=== PATIENT | male | born 1990 | race Caucasian/White ===

== ENCOUNTER 2018-05-12 10:00 | Emergency (ER) | payer OTHER, MEDICAID, SELFPAY ==
[2018-05-12 10:13] VITALS: BP 122/80; PULSE 55; RESP 18; TEMP 36.8; O2SAT 98; BMI 21.0
--- NOTE | 2018-05-12 11:41 | ED.ABDPAIN ---
HPI - Abdominal Pain General Chief Complaint: Abdominal Pain Stated Complaint: INABILITY TO EAT,EATING IS PAINFUL,VOMITING Time Seen by Provider: 05/12/18 10:11 History of Present Illness HPI narrative: HPI 28-year-old male with a history of abdominal pain, nausea, and postprandial discomfort presents for repeat evaluation. Symptoms have been present for several months. Patient reports to nursing that he was to follow up with GI but losses insurance and was thus unable to get a colonoscopy and endoscopy. Patient reports to myself that he did not pursue gastroenterology consultation arrange by his PCP as the follow-up time is longer than he would like. Patient reports that his primary care physician has not done kristopher jay in this is his reason for following up in the emergency department. M/S/F/SocHx notable for: please see HPI; remainder reviewed with patient and in chart. ROS: Negative constitutional, eye, cardiovascular, pulmonary, GI, , MSK, skin, neurologic, psychiatric, endocrine unless noted in the HPI. Exam Gen: Pleasant, non-toxic appearing, resting comfortably. HEENT: NC, AT, PEERL, EOMI. Resp: Clear to auscultation bilaterally, normal work of breathing, no accessory muscle usage. Card: Regular rate and rhythm with no murmurs, rubs, or gallops, extremities warm and well perfused. GI: Non-tender to palpation throughout all quadrants, no focal tenderness at McBurney's point, negative Rojo's sign, non-distended, no rebound or guarding. : No suprapubic tenderness to palpation. MSK: No visible deformities, strength and tone without visually appreciable deficit. Skin: Normal color with no visible lesions. Neuro: AO x 3, no facial asymmetry, vision and hearing WNL. Psych: Mood and affect appropriate. MDM Previous chart, nursing note, labs, imaging, and vitals reviewed. A: 28-year-old male with a history of abdominal pain, nausea, and postprandial discomfort x 3+ months presents for repeat evaluation. Patient continues to feel take PO adequately, screening labs (including inflammatory markers) were ordered. The plaintiff care was reviewed with the patient, as well as the possibility for advanced imaging of abnormalities were noted. The patient then noted to nursing a concern that his evaluation would not be more extensive than previously been provided in other emergency department settings, he then signed out AMA from the emergency department for further communication could be had regarding risks and benefits. Impression: abdominal pain, nausea, AMA. (please reference below for remainder of encounter information) Related Data Home Medications Medication Instructions Recorded Confirmed [TESTOSTERONE] #0 06/03/16 Previous Rx's Medication Instructions Recorded hyoscyamine sulfate [Levsin/SL] 0.125 mg SUBLINGUAL Q6HP PRN #14 01/24/18 tab ondansetron [Zofran ODT] 4 mg SUBLINGUAL Q6HP PRN #10 odt 01/24/18 pantoprazole [Protonix] 40 mg PO QDAY #14 tab 01/24/18 ondansetron [Zofran ODT] 4 mg SUBLINGUAL Q6HP PRN #10 odt 02/06/18 oxycodone-acetaminophen [Percocet] 1 tab PO Q4HP PRN #10 tab 02/06/18 Allergies Allergy/AdvReac Type Severity Reaction Status Date / Time hydromorphone [From DILAUDID] Allergy Unknown Verified 05/12/18 10:13 [facility] Social History Smoking Status: Never smoker Exam Initial Vital Signs Initial Vital Signs: Vital Signs Temperature 98.2 F 05/12/18 10:13 Pulse Rate 55 L 05/12/18 10:13 Respiratory Rate 18 05/12/18 10:13 Blood Pressure 122/80 H 05/12/18 10:13 Pulse Oximetry 98 05/12/18 10:13 Course Orders Ordered: ED Orders 05/12/18 10:33 C-Reactive Protein Quant Stat Complete Blood Count AUTO DIFF Stat Comprehensive Metabolic Panel Stat Erythrocyte Sedimentation Rate Stat Lipase Stat Vital Signs - 8 hr 05/12/18 10:13 Temperature 98.2 F Pulse Rate 55 L Respiratory Rate 18 Blood Pressure 122/80 H Pulse Oximetry 98 Discharge Plan Departure Patient Disposition: Left Against Medical Advice Discharge Date/Time: 05/12/18 10:42 Prescriptions: No Action [TESTOSTERONE] Qty: 0 RF: 0 pantoprazole [Protonix] 40 MG tablet,delayed release (DR/EC) 40 mg PO QDAY Qty: 14 RF: 0 hyoscyamine sulfate [Levsin/SL] 0.125 MG tablet, sublingual 0.125 mg Sublingual Q6HP PRNQty: 14 RF: 0 ondansetron [Zofran ODT] 4 MG tablet,disintegrating 4 mg Sublingual Q6HP PRNQty: 10 RF: 0 oxycodone-acetaminophen [Percocet] 5 MG/325 MG tablet 1 tab PO Q4HP PRNQty: 10 RF: 0 ondansetron [Zofran ODT] 4 MG tablet,disintegrating 4 mg Sublingual Q6HP PRNQty: 10 RF: 0 Stand Alone Forms: Against Medical Advice
--- NOTE | 2018-05-12 11:46 | ED_ITS ---
HPI - Abdominal Pain General Chief Complaint: Abdominal Pain Stated Complaint: INABILITY TO EAT,EATING IS PAINFUL,VOMITING Time Seen by Provider: 05/12/18 10:11 History of Present Illness HPI narrative: HPI 28-year-old male with a history of abdominal pain, nausea, and postprandial discomfort presents for repeat evaluation. Symptoms have been present for several months. Patient reports to nursing that he was to follow up with GI but losses insurance and was thus unable to get a colonoscopy and endoscopy. Patient reports to myself that he did not pursue gastroenterology consultation arrange by his PCP as the follow-up time is longer than he would like. Patient reports that his primary care physician has not done kristopher jay in this is his reason for following up in the emergency department. M/S/F/SocHx notable for: please see HPI; remainder reviewed with patient and in chart. ROS: Negative constitutional, eye, cardiovascular, pulmonary, GI, , MSK, skin , neurologic, psychiatric, endocrine unless noted in the HPI. Exam Gen: Pleasant, non-toxic appearing, resting comfortably. HEENT: NC, AT, PEERL, EOMI. Resp: Clear to auscultation bilaterally, normal work of breathing, no accessory muscle usage. Card: Regular rate and rhythm with no murmurs, rubs, or gallops, extremities warm and well perfused. GI: Non-tender to palpation throughout all quadrants, no focal tenderness at McBurney's point, negative Rojo's sign, non-distended, no rebound or guarding. : No suprapubic tenderness to palpation. MSK: No visible deformities, strength and tone without visually appreciable deficit. Skin: Normal color with no visible lesions. Neuro: AO x 3, no facial asymmetry, vision and hearing WNL. Psych: Mood and affect appropriate. MDM Previous chart, nursing note, labs, imaging, and vitals reviewed. A: 28-year-old male with a history of abdominal pain, nausea, and postprandial discomfort x 3+ months presents for repeat evaluation. Patient continues to feel take PO adequately, screening labs (including inflammatory markers) were ordered. The plaintiff care was reviewed with the patient, as well as the possibility for advanced imaging of abnormalities were noted. The patient then noted to nursing a concern that his evaluation would not be more extensive than previously been provided in other emergency department settings, he then signed out AMA from the emergency department for further communication could be had regarding risks and benefits. Impression: abdominal pain, nausea, AMA. (please reference below for remainder of encounter information) Related Data Home Medications Medication Instructions Recorded Confirmed [TESTOSTERONE] #0 06/03/16 Previous Rx's Medication Instructions Recorded hyoscyamine sulfate [Levsin/SL] 0.125 mg SUBLINGUAL Q6HP PRN #14 01/24/18 tab ondansetron [Zofran ODT] 4 mg SUBLINGUAL Q6HP PRN #10 odt 01/24/18 pantoprazole [Protonix] 40 mg PO QDAY #14 tab 01/24/18 ondansetron [Zofran ODT] 4 mg SUBLINGUAL Q6HP PRN #10 odt 02/06/18 oxycodone-acetaminophen [Percocet] 1 tab PO Q4HP PRN #10 tab 02/06/18 Allergies Allergy/AdvReac Type Severity Reaction Status Date / Time hydromorphone [From DILAUDID] Allergy Unknown Verified 05/12/18 10:13 [facility] Social History Smoking Status: Never smoker Exam Initial Vital Signs Initial Vital Signs: Vital Signs Temperature 98.2 F 05/12/18 10:13 Pulse Rate 55 L 05/12/18 10:13 Respiratory Rate 18 05/12/18 10:13 Blood Pressure 122/80 H 05/12/18 10:13 Pulse Oximetry 98 05/12/18 10:13 Course Orders Ordered: ED Orders 05/12/18 10:33 C-Reactive Protein Quant Stat Complete Blood Count AUTO DIFF Stat Comprehensive Metabolic Panel Stat Erythrocyte Sedimentation Rate Stat Lipase Stat Vital Signs - 8 hr 05/12/18 10:13 Temperature 98.2 F Pulse Rate 55 L Respiratory Rate 18 Blood Pressure 122/80 H Pulse Oximetry 98 Discharge Plan Departure Patient Disposition: Left Against Medical Advice Discharge Date/Time: 05/12/18 10:42 Prescriptions: No Action [TESTOSTERONE] Qty: 0 RF: 0 pantoprazole [Protonix] 40 MG tablet,delayed release (DR/EC) 40 mg PO QDAY Qty: 14 RF: 0 hyoscyamine sulfate [Levsin/SL] 0.125 MG tablet, sublingual 0.125 mg Sublingual Q6HP PRNQty: 14 RF: 0 ondansetron [Zofran ODT] 4 MG tablet,disintegrating 4 mg Sublingual Q6HP PRNQty: 10 RF: 0 oxycodone-acetaminophen [Percocet] 5 MG/325 MG tablet 1 tab PO Q4HP PRNQty: 10 RF: 0 ondansetron [Zofran ODT] 4 MG tablet,disintegrating 4 mg Sublingual Q6HP PRNQty: 10 RF: 0 Stand Alone Forms: Against Medical Advice
== END 2018-05-12 10:42 | disposition left against medical advice (07) ==
PROVIDERS: Emergency Provider Emergency Medicine; PCP Nurse Practitioner Family
DX: G43.909 Migraine, unspecified, not intractable, without status migrainosus (principal)
CPT/HCPCS: 99281

== ENCOUNTER 2019-03-20 21:27 | Emergency (ER) | payer OTHER, SELFPAY ==
[2019-03-20 21:36] VITALS: BP 119/71; PULSE 70; RESP 18; TEMP 36.7; O2SAT 100; BMI 20.7
--- NOTE | 2019-03-20 22:01 | DI.CT.S_ITS ---
PROCEDURE: CT ABDOMEN PELVIS W CON INDICATIONS: upper and lower pain TECHNIQUE: After the administration of oral and intravenous contrast, 5 mm thick sections acquired from the diaphragms to the symphysis. 5 mm thick coronal and sagittal reformats were performed. For radiation dose reduction, the following was used: automated exposure control, adjustment of mA and/or kV according to patient size. COMPARISON: None. FINDINGS: Image quality: Excellent. ABDOMEN: Lung bases: Lung bases are clear. Heart size is normal. Solid organs: Liver is normal in size. There is a 2.6 cm enhancing lesion in hepatic segment VIII which may represent hemangioma or focal nodular hyperplasia. Gallbladder is within normal limits. Biliary system is non-dilated. Pancreas enhances normally. Spleen is normal in size and enhancement. No adrenal nodules. Kidneys are normal in size and enhancement, without hydronephrosis. Peritoneum and bowel: Stomach, small bowel, and colon loops are normal in caliber and wall thickness. No free air. Small amount of free fluid noted in the pelvis. The appendix is normal. Nodes and vessels: No retroperitoneal or mesenteric adenopathy. Aorta and inferior vena cava are normal in caliber. Miscellaneous: No ventral hernias. PELVIS: Genitourinary: Bladder wall thickness is normal. 1.5 cm involuting right adnexal cyst. Miscellaneous: No inguinal hernias or adenopathy. Bones: No suspicious bony lesions. No vertebral body compression fractures. IMPRESSION: 1. Small amount of free fluid in the pelvis. 2. The appendix is normal. 3. Probable 1.5 cm involuting right adnexal cyst. 4. 2.6 cm right hepatic enhancing lesion may represent hemangioma or focal nodular hyperplasia. Recommend MRI abdomen with Eovist contrast for definitive characterization. Dictated by: Tamanna Mccloud MD, PhD on 03/21/2019 at 8:22 Approved by: Tamanna Mccloud MD, PhD on 03/21/2019 at 9:15
--- NOTE | 2019-03-20 22:04 | ED.ABDPAIN ---
HPI - Abdominal Pain General Chief Complaint: Abdominal Pain Stated Complaint: ABD PAIN Time Seen by Provider: 03/20/19 21:38 Source: patient Mode of arrival: ambulatory Limitations: no limitations History of Present Illness HPI narrative: Patient is a female to male transgender presenting with epigastric lower abdominal pain. He is still having heavy menstrual cycles and painful menstrual cycles. No longer taking hormones. He has been having some epigastric pain ongoing for the last few months. He asked he has a GI consultations scheduled for next and a new PCP appointment in 3 days. Number pain has gotten much worse. Actually says that pain after menstrual cycles is a much worse, then during. He did have an EGD at some point which stated he had an ulcer and hiatal hernia but was never put on any proton pump inhibitor. Patient states he is also feeling short of breath for about the last month and a half. Very short of breath losing his hair very weak. No actual chest pain. MD complaint: abdominal pain Onset (ago): month(s) Related Data Home Medications Medication Instructions Recorded Confirmed [TESTOSTERONE] #0 06/03/16 Previous Rx's Medication Instructions Recorded hyoscyamine sulfate [Levsin/SL] 0.125 mg SUBLINGUAL Q6HP PRN #14 01/24/18 tab ondansetron [Zofran ODT] 4 mg SUBLINGUAL Q6HP PRN #10 odt 01/24/18 pantoprazole [Protonix] 40 mg PO QDAY #14 tab 01/24/18 ondansetron [Zofran ODT] 4 mg SUBLINGUAL Q6HP PRN #10 odt 02/06/18 oxycodone-acetaminophen [Percocet] 1 tab PO Q4HP PRN #10 tab 02/06/18 pantoprazole [Protonix] 40 mg PO BID 14 Days #28 tab 03/21/19 Allergies Allergy/AdvReac Type Severity Reaction Status Date / Time hydromorphone [From DILAUDID] Allergy Unknown Verified 05/12/18 10:13 Review of Systems Review of Systems GENERAL: Denies chills, fatigue, malaise, fever, sweats, travel HEENT: Denies sinus pain, ear pain, sore throat, difficulty swallowing, neck pain RESPIRATORY: HPI CARDIOVASCULAR: Denies chest pain, palpitations, orthopnea, edema GASTROINTESTINAL: See HPI : Denies dysuria, frequency, incontinence, hematuria, urinary retention, flank pain. MUSCULOSKELETAL: Denies weakness, joint pain, or bony pain SKIN: No rash, no erythema, no pruritus NEUROLOGIC: Denies weakness, dizziness, headache, numbness, change in speech, confusion PSYCHIATRIC: No concerning psychosocial issues. 12 point review of systems is negative except for those stated above and HPI PFSH Social History Smoking Status: Never smoker Social History Smoking Status: Never smoker Exam Initial Vital Signs Initial Vital Signs: Vital Signs Temperature 98.1 F 03/20/19 21:36 Pulse Rate 70 03/20/19 21:36 Respiratory Rate 18 03/20/19 21:36 Blood Pressure 119/71 03/20/19 21:36 Pulse Oximetry 100 03/20/19 21:36 GENERAL: Male features facial hair alert oriented x3 and in [no acute] distress. HEENT: Head atraumatic,EOMI, pupils reactive, CARDIOVASCULAR: Regular rate and rhythm without murmurs, rubs or gallops. RESPIRATORY: Breath sounds equal bilaterally, no wheezes rales or rhonchi. ABDOMEN: Soft, mild epigastric pain mild lower abdominal pain : No CVA tenderness EXTREMITIES: Normal range of motion, no clubbing or edema. Neurovascularly intact NEUROLOGICAL: Alert and oriented x4.Normal gait and speech. Cranial nerves II through XII grossly intact. SKIN: Warm, dry, no laceration, no petechiae, no rashes or lesions. Course Orders Ordered: ED Orders 03/20/19 21:45 Complete Blood Count AUTO DIFF Stat Comprehensive Metabolic Panel Stat Lipase Stat 03/20/19 22:01 CT abdomen pelvis w con Stat 03/20/19 22:11 XR chest 2V Stat Discontinued Medications Ondansetron HCl (Zofran) 4 mg IV NOW ONE Stop: 03/20/19 22:00 Last Admin: 03/20/19 22:15 Dose: 4 mg Pantoprazole Sodium (Protonix) 40 mg IV NOW ONE Stop: 03/20/19 22:00 Last Admin: 03/20/19 22:15 Dose: 40 mg Vital Signs - 8 hr 03/20/19 21:36 03/20/19 23:32 03/21/19 01:25 Temperature 98.1 F Pulse Rate 70 76 68 Respiratory Rate 18 18 18 Blood Pressure 119/71 118/69 Blood Pressure [Right Arm] 122/72 Pulse Oximetry 100 99 100 MDM - Abdominal Pain Lab Data Attestation: I reviewed the patient's lab results. Result diagrams: 03/20/19 21:45 03/20/19 21:45 Lab Results 03/20/19 03/20/19 Range/Units 21:45 21:45 WBC 8.8 (4.5-11.0) X10^3/uL RBC 3.94 L (4.5-5.9) X10^6/uL Hgb 12.7 L (13.5-17.5) g/dL Hct 37.4 L (41-53) % MCV 94.9 (80-100) fL MCH 32.2 (26-34) PG MCHC 34.0 (30-36) % RDW 12.6 (11.6-14.8) % Plt Count 214 (150-400) X10^3/uL Neut % (Auto) 64.2 (50-75) % Lymph % (Auto) 27.3 (25-40) % [place] % (Auto) 7.1 (3-14) % Eos % (Auto) 0.8 L (2-4) % Baso % (Auto) 0.6 (0-2) % Neut # (Auto) 5700 (3050-0856) /uL Lymph # (Auto) 2400 (6199-0902) /uL [place] # (Auto) 600 (0-900) /uL Eos # (Auto) 100 (0-450) /uL Baso # (Auto) 100 (0-100) /uL Sodium 140 (137-145) mmol/L Potassium 3.9 (3.4-5.1) mmol/L Chloride 103 (98-107) mmol/L Carbon Dioxide 27 (22-32) mmol/L BUN 14 (9-20) mg/dL Creatinine 0.90 (0.66-1.25) mg/dL Estimated GFR > 60.0 (>60) mL/min BUN/Creatinine Ratio 15.6 (6-22) Glucose 75 (70-100) mg/dL Calcium 9.2 (8.4-10.2) mg/dL Total Bilirubin 0.3 (0.2-1.3) mg/dL AST 24 (17-59) IU/L ALT 6 L (21-72) IU/L Alkaline Phosphatase 44 (38-126) U/L Total Protein 7.5 (6.3-8.2) g/dL Albumin 4.6 (3.5-5.0) g/dL Globulin 2.9 (1.7-4.1) g/dL Albumin/Globulin Ratio 1.6 (1.0-2.8) Lipase 95 (23-300) U/L Point of care testing: Point of Care Testing Test Results Negative Imaging Data CT scan - abdomen: Radiologist's impression: outside maintenance worker report: Small amount of fluid within the pelvis possible right posterior pelvis hemorrhagic cyst. 2.4cm enhancing nodule right lobe of liver. Question at and H or hemangioma. Follow-up recommended 3 days months. Chest x-ray: Attestation: I personally reviewed and interpreted this imaging study as follows: My impression: No acute process MDM Narrative Medical decision making narrative: Patient actually has good follow-up this week and next week with his PCP and specialist. Most the pain is been ongoing for a few months. He does have a hemorrhagic ovarian cyst on the right likely causing pain in the lower abdomen. However complaining of more pain in epigastric area all of bilateral ribs. States he has had EGD which showed hiatal hernia and gastritis. Sometimes it is worsened by soon. Possible ulcer. Not on any medication for ulcers. Will put him on something at to see if that helps with symptoms. Appointment with PCP in 2 days. Discharge Plan Departure Patient Disposition: Home Clinical Impression: Hemorrhagic ovarian cyst Gastritis Qualifiers: Gastritis type: other gastritis Chronicity: unspecified Gastritis bleeding: without bleeding Qualified Code(s): K29.60 - Other gastritis without bleeding Discharge Date/Time: 03/21/19 00:45 Interventions: ED Discharge Assessment Last Done: 03/21/19 01:25 Instructions: DI for Ovarian Cyst, DI for Gastritis Activity Restrictions/Additional Instructions: *You have been diagnosed with ovarian cyst in gastritis *What to do: You also have a hemangioma on your liver. This will need follow-up with her PCP in 3-6 Recommend following up with her specialist and PCP as already arranged. *Continue to take medications as directed Omeprazole 40 mg twice a day for 2 weeks-4 gastritis *Follow up with your primary care provider in 2-3 days *Return to ER if you should have increasing pain, persistent vomiting, or any new, worsening or concerning symptoms Prescriptions: New pantoprazole [Protonix] 40 mg tablet,delayed release (DR/EC) 40 mg PO BID 14 Days Qty: 28 RF: 0 No Action [TESTOSTERONE] Qty: 0 RF: 0 pantoprazole [Protonix] 40 MG tablet,delayed release (DR/EC) 40 mg PO QDAY Qty: 14 RF: 0 hyoscyamine sulfate [Levsin/SL] 0.125 MG tablet, sublingual 0.125 mg Sublingual Q6HP PRNQty: 14 RF: 0 ondansetron [Zofran ODT] 4 MG tablet,disintegrating 4 mg Sublingual Q6HP PRNQty: 10 RF: 0 oxycodone-acetaminophen [Percocet] 5 MG/325 MG tablet 1 tab PO Q4HP PRNQty: 10 RF: 0 ondansetron [Zofran ODT] 4 MG tablet,disintegrating 4 mg Sublingual Q6HP PRNQty: 10 RF: 0 Referrals: Alexandra Smart ARNP [Primary Care Provider] - Stand Alone Forms: Work Release Note
--- NOTE | 2019-03-20 22:11 | DI.RAD.S_ITS ---
PROCEDURE: XR CHEST 2V INDICATIONS: short of breath TECHNIQUE: 2 views of the chest were acquired. COMPARISON: None. FINDINGS: Surgical changes and devices: None. Lungs and pleura: Lungs are clear. No pleural effusions or pneumothorax. Mediastinum: Mediastinal contours are normal. Heart size is normal. Bones and chest wall: No suspicious bony abnormalities. Soft tissues appear unremarkable. IMPRESSION: Normal for age, source of current shortness of breath symptoms is not seen. Note: These findings are concordant with the preliminary interpretation. Dictated by: Pedrito Mccord M.D. on 03/21/2019 at 8:06 Approved by: Pedrito Mccord M.D. on 03/21/2019 at 8:06
[2019-03-20 22:14] LABS: Add Manual Diff / Slide Review NO; Basophils Absolute Auto 100 /uL (0-100); Basophils Percent Auto 0.6 % (0-2); Eosinophils Absolute Auto 100 /uL (0-450); Eosinophils Percent Auto 0.8 % (2-4); Hematocrit 37.4 % (41-53); Hemoglobin 12.7 g/dL (13.5-17.5); Lymphocytes Absolute Auto 2400 /uL (1100-4500); Lymphocytes Percent Auto 27.3 % (25-40); Mean Corpuscular Hemoglobin 32.2 PG (26-34); Mean Corpuscular Volume 94.9 fL (80-100); Monocytes Absolute Auto 600 /uL (0-900); Monocytes Percent Auto 7.1 % (3-14); Neutrophils Absolute Auto 5700 /uL (1500-7000); Neutrophils Percent Auto 64.2 % (50-75); Platelet Count 214 X10^3/uL (150-400); Red Blood Cell Count 3.94 X10^6/uL (4.5-5.9); Red Cell Distribution Width 12.6 % (11.6-14.8); White Blood Cell Count 8.8 X10^3/uL (4.5-11.0)
[2019-03-20] MEDS: ONDANSETRON 4 MG/2 ML INJ IV (22:15)
[2019-03-20] MEDS: PANTOPRAZOLE 40 MG VIAL IV (22:15)
[2019-03-20 22:22] LABS: Alanine Aminotransferase 6 IU/L (21-72); Albumin 4.6 g/dL (3.5-5.0); Albumin Globulin Ratio 1.6 (1.0-2.8); Alkaline Phosphatase 44 U/L (38-126); Aspartate Aminotransferase 24 IU/L (17-59); BUN Creatinine Ratio 15.6 (6-22); Bilirubin Total 0.3 mg/dL (0.2-1.3); Blood Urea Nitrogen 14 mg/dL (9-20); Calcium 9.2 mg/dL (8.4-10.2); Carbon Dioxide 27 mmol/L (22-32); Chloride 103 mmol/L (98-107); Estimated Glomerular Filt Rate > 60.0 mL/min (>60); Globulin 2.9 g/dL (1.7-4.1); Glucose 75 mg/dL (70-100); HEMOLYSIS 18 (0-50); Lipase 95 U/L (23-300); Potassium 3.9 mmol/L (3.4-5.1); Sodium 140 mmol/L (137-145); Total Protein 7.5 g/dL (6.3-8.2)
[2019-03-20 23:32] VITALS: BP 122/72; PULSE 76; RESP 18; O2SAT 99
[2019-03-21 01:25] VITALS: BP 118/69; PULSE 68; RESP 18; O2SAT 100
== END 2019-03-21 00:45 | disposition home or self-care (01) ==
PROVIDERS: Emergency Provider Emergency Medicine; Family Provider Nurse Practitioner Family; PCP Nurse Practitioner Family
DX: N83.209 Unspecified ovarian cyst, unspecified side (principal); K29.70 Gastritis, unspecified, without bleeding
CPT/HCPCS: 36591; 71046; 74177; 80053; 81025; 83690; 85025; 96374; 96375; 99282; 99285; C9113; J2405

== ENCOUNTER 2019-06-18 02:38 | Emergency (ER) | payer OTHER, SELFPAY ==
--- NOTE | 2019-06-18 02:41 | ED.ABDPAIN ---
HPI - Abdominal Pain General Chief Complaint: Abdominal Pain Stated Complaint: right side abdomen pain, has tumor Time Seen by Provider: 06/18/19 02:40 Source: patient Mode of arrival: ambulatory Limitations: no limitations History of Present Illness HPI narrative: 29-year-old nonsmoker presents with nearly 2 years of episodes of abdominal pain, primarily in the right upper quadrant. He denies any provocation, palliation or radiation. He does state that he found out in February that there is a cyst on his liver as noted by CT of the abdomen and pelvis. He states that he is supposed to have an MRI in August to evaluate but his PCP is pushing for sooner evaluation with potential biopsy. He has had decreased appetite, denies weight loss, admits to persistent nausea and loose stools. Denies any recent travel, antibiotics or exposure to bad food or ill persons MD complaint: abdominal pain Onset (ago): month(s) Pain Consistency: intermittent Location: RUQ Severity: moderate Quality: aching Radiation: none Relieving factors: nothing Exacerbating factors: nothing Associated symptoms: nausea, vomiting and diarrhea Related Data Home Medications Medication Instructions Recorded Confirmed [TESTOSTERONE] #0 06/03/16 Previous Rx's Medication Instructions Recorded hyoscyamine sulfate [Levsin/SL] 0.125 mg SUBLINGUAL Q6HP PRN #14 01/24/18 tab ondansetron [Zofran ODT] 4 mg SUBLINGUAL Q6HP PRN #10 odt 01/24/18 pantoprazole [Protonix] 40 mg PO QDAY #14 tab 01/24/18 ondansetron [Zofran ODT] 4 mg SUBLINGUAL Q6HP PRN #10 odt 02/06/18 oxycodone-acetaminophen [Percocet] 1 tab PO Q4HP PRN #10 tab 02/06/18 ketorolac 10 mg PO Q6H PRN #20 tab 06/18/19 Allergies Allergy/AdvReac Type Severity Reaction Status Date / Time hydromorphone [From DILAUDID] Allergy Unknown Verified 05/12/18 10:13 Review of Systems Constitutional Denies chills, Denies fever(s), Denies lethargy and Denies weakness Eyes Denies change in vision, Denies eye discharge, Denies irritation and Denies loss of vision ENT Ears, Nose, Mouth, and Throat: Denies change in voice, Denies neck pain and Denies sore throat Cardiovascular Denies chest pain, Denies irregular heart rhythm, Denies lightheadedness, Denies palpitations, Denies dyspnea, Denies dyspnea on exertion and Denies orthopnea Respiratory Denies cough, Denies dyspnea, Denies dyspnea on exertion and Denies wheezing Gastrointestinal Gastrointestinal: Reports abdominal pain, Reports change in bowel habits, Denies diarrhea, Reports nausea and Reports vomiting Genitourinary Denies hematuria, Denies flank pain, Denies urinary incontinence and Denies urinary urgency Musculoskeletal Denies neck pain Integumentary/Breasts Denies pruritus, Denies erythema, Denies rash and Denies wounds Neurologic Denies confusion, Denies loss of vision and Denies weakness Psychiatric Denies anxiety, Denies confusion, Denies depression, Denies homicidal ideation and Denies suicidal ideation Endocrine Denies palpitations Hematologic/Lymphatic Denies easy bruising Allergic/Immunologic Denies wheezing PFSH Social History Smoking Status: Never smoker Social History Smoking Status: Never smoker Exam Narrative Exam Narrative: GENERAL: [29] year old patient appears stated age. Well-nourished, well-developed patient, in mild distress. HEAD: Atraumatic. Normocephalic. EYES: Pupils equal round and reactive. Extraocular motions intact. No scleral icterus. No injection or drainage. ENT: Nose without bleeding, purulent drainage. Throat without erythema, tonsillar hypertrophy or exudate. Airway patent. NECK: Trachea midline. Non tender CARDIOVASCULAR: Regular rate and rhythm without murmurs, gallops, or rubs. RESPIRATORY: Clear to auscultation. Breath sounds equal bilaterally. No wheezes, rales, or rhonchi. GASTROINTESTINAL: Abdomen soft, mild tenderness in right upper quadrant, nondistended. EXTREMITIES: No edema or joint tenderness. BACK: Nontender without deformity or crepitance. No flank tenderness. NEURO: AOx3. SKIN: No rash or erythema of visible areas Initial Vital Signs Initial Vital Signs: Vital Signs Temperature 98.2 F 06/18/19 02:44 Pulse Rate 72 06/18/19 02:44 Respiratory Rate 16 06/18/19 02:44 Blood Pressure 131/92 H 06/18/19 02:44 Pulse Oximetry 100 06/18/19 02:44 Course Orders Ordered: ED Orders 06/18/19 02:58 US abdomen limited Stat 06/18/19 03:10 Complete Blood Count AUTO DIFF Stat Comprehensive Metabolic Panel Stat Lipase Stat Prothrombin Time INR Stat Sodium Chloride (Normal Saline 0.9%) 1,000 mls @ 150 mls/hr IV CONT JENNY Last Infusion: 06/18/19 03:57 Dose: 0 mls/hr Admin: 06/18/19 03:21 Dose: 150 mls/hr Discontinued Medications Ketorolac Tromethamine (Toradol) 15 mg IV NOW ONE Stop: 06/18/19 03:01 Last Admin: 06/18/19 03:22 Dose: 15 mg Ondansetron HCl (Zofran) 4 mg IV NOW ONE Stop: 06/18/19 02:59 Last Admin: 06/18/19 03:22 Dose: 4 mg Reevaluation(s) Reevaluation #1: Near complete resolution of symptoms after Toradol Vital Signs - 8 hr 06/18/19 02:44 Temperature 98.2 F Pulse Rate 72 Respiratory Rate 16 Blood Pressure 131/92 H Pulse Oximetry 100 MDM - Abdominal Pain Lab Data Result diagrams: 06/18/19 03:10 06/18/19 03:10 Lab Results 06/18/19 06/18/19 06/18/19 Range/Units 03:10 03:10 03:10 WBC 6.6 (4.5-11.0) X10^3/uL RBC 3.77 L (4.5-5.9) X10^6/uL Hgb 12.5 L (13.5-17.5) g/dL Hct 35.8 L (41-53) % MCV 94.9 (80-100) fL MCH 33.1 (26-34) PG MCHC 34.9 (30-36) % RDW 12.1 (11.6-14.8) % Plt Count 197 (150-400) X10^3/uL Neut % (Auto) 54.2 (50-75) % Lymph % (Auto) 37.3 (25-40) % [place] % (Auto) 7.1 (3-14) % Eos % (Auto) 0.8 L (2-4) % Baso % (Auto) 0.6 (0-2) % Neut # (Auto) 3600 (4733-2125) /uL Lymph # (Auto) 2500 (2710-2172) /uL [place] # (Auto) 500 (0-900) /uL Eos # (Auto) 100 (0-450) /uL Baso # (Auto) 0 (0-100) /uL PT 11.7 (10.1-12.7) SECONDS INR 1.0 (0.9-1.3) Sodium 140 (137-145) mmol/L Potassium 3.5 (3.4-5.1) mmol/L Chloride 102 (98-107) mmol/L Carbon Dioxide 28 (22-32) mmol/L BUN 9 (9-20) mg/dL Creatinine 0.60 L (0.66-1.25) mg/dL Estimated GFR > 60.0 (>60) mL/min BUN/Creatinine Ratio 15.0 (6-22) Glucose 96 (70-100) mg/dL Calcium 9.5 (8.4-10.2) mg/dL Total Bilirubin 0.4 (0.2-1.3) mg/dL AST 24 (17-59) IU/L ALT 12 L (21-72) IU/L Alkaline Phosphatase 43 (38-126) U/L Total Protein 7.6 (6.3-8.2) g/dL Albumin 4.7 (3.5-5.0) g/dL Globulin 2.9 (1.7-4.1) g/dL Albumin/Globulin Ratio 1.6 (1.0-2.8) Lipase 121 (23-300) U/L Point of care testing: Urine Dip Bedside Urine Glucose Negative Bedside Urine Bilirubin - Negative Bedside Urine Ketone - Negative Urine Specific [place] 1.015 Bedside Urine Occult Blood - Negative Bedside Urine pH 6.5 Bedside Urine Protein - Negative Bedside Urine Urobilinogen - Negative Bedside Urine Nitrite - Negative Bedside Urine Leukocytes - Negative Esterase MDM Narrative Medical decision making narrative: Multiple etiologies for patient's symptoms considered including: [Gallbladder pain versus hepatitis versus endometriosis versus other] Patient's symptoms improved or duration of stay with above-stated therapies. Findings and discharge diagnosis discussed with patient/family followed by verbalization of understanding Return precautions discussed with patient/family whom verbalize understanding. Discharge Plan Departure Patient Disposition: Home Clinical Impression: Abdominal pain Qualifiers: Abdominal location: right upper quadrant Qualified Code(s): R10.11 - Right upper quadrant pain Instructions: DI for Abdominal Pain-Adult Activity Restrictions/Additional Instructions: *You have been diagnosed with [chronic abdominal pain] *What to do: *Take medications as directed: [facility] [place] [facility] *Follow up with your primary care provider in 2-3 days, call for an appointment. Let them know you were seen in the Emergency Department and that we ask that you be seen in follow up *Return to ER if you should have any new, worsening or concerning symptoms Prescriptions: New ketorolac 10 mg tablet 10 mg PO Q6H PRN (Reason: pain) Qty: 20 RF: 0 No Action [TESTOSTERONE] Qty: 0 RF: 0 pantoprazole [Protonix] 40 MG tablet,delayed release (DR/EC) 40 mg PO QDAY Qty: 14 RF: 0 hyoscyamine sulfate [Levsin/SL] 0.125 MG tablet, sublingual 0.125 mg Sublingual Q6HP PRNQty: 14 RF: 0 ondansetron [Zofran ODT] 4 MG tablet,disintegrating 4 mg Sublingual Q6HP PRNQty: 10 RF: 0 oxycodone-acetaminophen [Percocet] 5 MG/325 MG tablet 1 tab PO Q4HP PRNQty: 10 RF: 0 ondansetron [Zofran ODT] 4 MG tablet,disintegrating 4 mg Sublingual Q6HP PRNQty: 10 RF: 0 Referrals: Alexandra Smart ARNP [Primary Care Provider] -
[2019-06-18 02:44] VITALS: BP 131/92; PULSE 72; RESP 16; TEMP 36.8; O2SAT 100; BMI 20.1
--- NOTE | 2019-06-18 02:58 | DI.US.S_ITS ---
PROCEDURE: US ABDOMEN LIMITED INDICATIONS: SEVERE EPIGASTRIC / RUQ PAIN, KNOWN HEMANGIOMA TECHNIQUE: Real-time focused scanning was performed of the abdomen, with image documentation. COMPARISON: [facility], CT, CT ABDOMEN PELVIS W CON, 03/20/2019, 23:05. [facility], US, ABDOMEN COMPLETE, 01/24/2018, 14:53. FINDINGS: Liver is normal in size. There is a 2.9 x 2.7 x 2.6 cm hemangioma versus focal nodular hyperplasia in the right lobe the liver which is not significantly changed compared to prior CT scan. Gallbladder slightly contracted. No gallbladder wall thickening. No gallstones. No pericholecystic fluid. No sonographic Rojo sign. Biliary tree is nondilated. Common bile duct measures 2.7 mm. Pancreas is sonographically normal. IMPRESSION: No sonographic evidence of cholelithiasis or cholecystitis. If there is continued clinical concern for cholecystitis, then nuclear medicine HIDA scan should be considered for further evaluation. Dictated by: Tamanna Mccloud MD, PhD on 06/18/2019 at 8:59 Approved by: Tamanna Mccloud MD, PhD on 06/18/2019 at 9:02
--- NOTE | 2019-06-18 03:04 | ED_ITS ---
HPI - Abdominal Pain General Chief Complaint: Abdominal Pain Stated Complaint: right side abdomen pain, has tumor Time Seen by Provider: 06/18/19 02:40 Source: patient Mode of arrival: ambulatory Limitations: no limitations History of Present Illness HPI narrative: 29-year-old nonsmoker presents with nearly 2 years of episodes of abdominal pain, primarily in the right upper quadrant. He denies any provocation, palliation or radiation. He does state that he found out in February that there is a cyst on his liver as noted by CT of the abdomen and pelvis. He states that he is supposed to have an MRI in August to evaluate but his PCP is pushing for sooner evaluation with potential biopsy. He has had decreased a ppetite, denies weight loss, admits to persistent nausea and loose stools. Denies any recent travel, antibiotics or exposure to bad food or ill persons MD complaint: abdominal pain Onset (ago): month(s) Pain Consistency: intermittent Location: RUQ Severity: moderate Quality: aching Radiation: none Relieving factors: nothing Exacerbating factors: nothing Associated symptoms: nausea, vomiting and diarrhea Related Data Home Medications Medication Instructions Recorded Confirmed [TESTOSTERONE] #0 06/03/16 Previous Rx's Medication Instructions Recorded hyoscyamine sulfate [Levsin/SL] 0.125 mg SUBLINGUAL Q6HP PRN #14 01/24/18 tab ondansetron [Zofran ODT] 4 mg SUBLINGUAL Q6HP PRN #10 odt 01/24/18 pantoprazole [Protonix] 40 mg PO QDAY #14 tab 01/24/18 ondansetron [Zofran ODT] 4 mg SUBLINGUAL Q6HP PRN #10 odt 02/06/18 oxycodone-acetaminophen [Percocet] 1 tab PO Q4HP PRN #10 tab 02/06/18 ketorolac 10 mg PO Q6H PRN #20 tab 06/18/19 Allergies Allergy/AdvReac Type Severity Reaction Status Date / Time hydromorphone [From DILAUDID] Allergy Unknown Verified 05/12/18 10:13 Review of Systems Constitutional Denies chills, Denies fever(s), Denies lethargy and Denies weakness Eyes Denies change in vision, Denies eye discharge, Denies irritation and Denies loss of vision ENT Ears, Nose, Mouth, and Throat: Denies change in voice, Denies neck pain and Denies sore throat Cardiovascular Denies chest pain, Denies irregular heart rhythm, Denies lightheadedness, Denies palpitations, Denies dyspnea, Denies dyspnea on exertion and Denies orthopnea Respiratory Denies cough, Denies dyspnea, Denies dyspnea on exertion and Denies wheezing Gastrointestinal Gastrointestinal: Reports abdominal pain, Reports change in bowel habits, Denies diarrhea, Reports nausea and Reports vomiting Genitourinary Denies hematuria, Denies flank pain, Denies urinary incontinence and Denies urinary urgency Musculoskeletal Denies neck pain Integumentary/Breasts Denies pruritus, Denies erythema, Denies rash and Denies wounds Neurologic Denies confusion, Denies loss of vision and Denies weakness Psychiatric Denies anxiety, Denies confusion, Denies depression, Denies homicidal ideation and Denies suicidal ideation Endocrine Denies palpitations Hematologic/Lymphatic Denies easy bruising Allergic/Immunologic Denies wheezing PFSH Social History Smoking Status: Never smoker Social History Smoking Status: Never smoker Exam Narrative Exam Narrative: GENERAL: [29] year old patient appears stated age. Well- nourished, well-developed patient, in mild distress. HEAD: Atraumatic. Normocephalic. EYES: Pupils equal round and reactive. Extraocular motions intact. No scleral icterus. No injection or drainage. ENT: Nose without bleeding, purulent drainage. Throat without erythema, tonsillar hypertrophy or exudate. Airway patent. NECK: Trachea midline. Non tender CARDIOVASCULAR: Regular rate and rhythm without murmurs, gallops, or rubs. RESPIRATORY: Clear to auscultation. Breath sounds equal bilaterally. No wheezes, rales, or rhonchi. GASTROINTESTINAL: Abdomen soft, mild tenderness in right upper quadrant, nondistended. EXTREMITIES: No edema or joint tenderness. BACK: Nontender without deformity or crepitance. No flank tenderness. NEURO: AOx3. SKIN: No rash or erythema of visible areas Initial Vital Signs Initial Vital Signs: Vital Signs Temperature 98.2 F 06/18/19 02:44 Pulse Rate 72 06/18/19 02:44 Respiratory Rate 16 06/18/19 02:44 Blood Pressure 131/92 H 06/18/19 02:44 Pulse Oximetry 100 06/18/19 02:44 Course Orders Ordered: ED Orders 06/18/19 02:58 US abdomen limited Stat 06/18/19 03:10 Complete Blood Count AUTO DIFF Stat Comprehensive Metabolic Panel Stat Lipase Stat Prothrombin Time INR Stat Sodium Chloride (Normal Saline 0.9%) 1,000 mls @ 150 mls/hr IV CONT JENNY Last Infusion: 06/18/19 03:57 Dose: 0 mls/hr Admin: 06/18/19 03:21 Dose: 150 mls/hr Discontinued Medications Ketorolac Tromethamine (Toradol) 15 mg IV NOW ONE Stop: 06/18/19 03:01 Last Admin: 06/18/19 03:22 Dose: 15 mg Ondansetron HCl (Zofran) 4 mg IV NOW ONE Stop: 06/18/19 02:59 Last Admin: 06/18/19 03:22 Dose: 4 mg Reevaluation(s) Reevaluation #1: Near complete resolution of symptoms after Toradol Vital Signs - 8 hr 06/18/19 02:44 Temperature 98.2 F Pulse Rate 72 Respiratory Rate 16 Blood Pressure 131/92 H Pulse Oximetry 100 MDM - Abdominal Pain Lab Data Result diagrams: 06/18/19 03:10 06/18/19 03:10 Lab Results 06/18/19 06/18/19 06/18/19 Range/Units 03:10 03:10 03:10 WBC 6.6 (4.5-11.0) X10^3/uL RBC 3.77 L (4.5-5.9) X10^6/uL Hgb 12.5 L (13.5-17.5) g/dL Hct 35.8 L (41-53) % MCV 94.9 (80-100) fL MCH 33.1 (26-34) PG MCHC 34.9 (30-36) % RDW 12.1 (11.6-14.8) % Plt Count 197 (150-400) X10^3/uL Neut % (Auto) 54.2 (50-75) % Lymph % (Auto) 37.3 (25-40) % [place] % (Auto) 7.1 (3-14) % Eos % (Auto) 0.8 L (2-4) % Baso % (Auto) 0.6 (0-2) % Neut # (Auto) 3600 (7283-2306) /uL Lymph # (Auto) 2500 (7363-3898) /uL [place] # (Auto) 500 (0-900) /uL Eos # (Auto) 100 (0-450) /uL Baso # (Auto) 0 (0-100) /uL PT 11.7 (10.1-12.7) SECONDS INR 1.0 (0.9-1.3) Sodium 140 (137-145) mmol/L Potassium 3.5 (3.4-5.1) mmol/L Chloride 102 (98-107) mmol/L Carbon Dioxide 28 (22-32) mmol/L BUN 9 (9-20) mg/dL Creatinine 0.60 L (0.66-1.25) mg/dL Estimated GFR > 60.0 (>60) mL/min BUN/Creatinine Ratio 15.0 (6-22) Glucose 96 (70-100) mg/dL Calcium 9.5 (8.4-10.2) mg/dL Total Bilirubin 0.4 (0.2-1.3) mg/dL AST 24 (17-59) IU/L ALT 12 L (21-72) IU/L Alkaline Phosphatase 43 (38-126) U/L Total Protein 7.6 (6.3-8.2) g/dL Albumin 4.7 (3.5-5.0) g/dL Globulin 2.9 (1.7-4.1) g/dL Albumin/Globulin Ratio 1.6 (1.0-2.8) Lipase 121 (23-300) U/L Point of care testing: Urine Dip Bedside Urine Glucose Negative Bedside Urine Bilirubin - Negative Bedside Urine Ketone - Negative Urine Specific [place] 1.015 Bedside Urine Occult Blood - Negative Bedside Urine pH 6.5 Bedside Urine Protein - Negative Bedside Urine Urobilinogen - Negative Bedside Urine Nitrite - Negative Bedside Urine Leukocytes - Negative Esterase MDM Narrative Medical decision making narrative: Multiple etiologies for patient's symptoms considered including: [Gallbladder pain versus hepatitis versus endometriosis versus other] Patient's symptoms improved or duration of stay with above-stated therapies. Findings and discharge diagnosis discussed with patient/family followed by verbalization of understanding Return precautions discussed with patient/family whom verbalize understanding. Discharge Plan Departure Patient Disposition: Home Clinical Impression: Abdominal pain Qualifiers: Abdominal location: right upper quadrant Qualified Code(s): R10.11 - Right upper quadrant pain Instructions: DI for Abdominal Pain-Adult Activity Restrictions/Additional Instructions: *You have been diagnosed with [chronic abdominal pain] *What to do: *Take medications as directed: Your prescription has been electronically transmitted to the [facility] in [place] at your request *Follow up with your primary care provider in 2-3 days, call for an appointment. Let them know you were seen in the Emergency Department and that we ask that you be seen in follow up *Return to ER if you should have any new, worsening or concerning symptoms Prescriptions: New ketorolac 10 mg tablet 10 mg PO Q6H PRN (Reason: pain) Qty: 20 RF: 0 No Action [TESTOSTERONE] Qty: 0 RF: 0 pantoprazole [Protonix] 40 MG tablet,delayed release (DR/EC) 40 mg PO QDAY Qty: 14 RF: 0 hyoscyamine sulfate [Levsin/SL] 0.125 MG tablet, sublingual 0.125 mg Sublingual Q6HP PRNQty: 14 RF: 0 ondansetron [Zofran ODT] 4 MG tablet,disintegrating 4 mg Sublingual Q6HP PRNQty: 10 RF: 0 oxycodone-acetaminophen [Percocet] 5 MG/325 MG tablet 1 tab PO Q4HP PRNQty: 10 RF: 0 ondansetron [Zofran ODT] 4 MG tablet,disintegrating 4 mg Sublingual Q6HP PRNQty: 10 RF: 0 Referrals: Alexandra Smart ARNP [Primary Care Provider] -
[2019-06-18 03:19] LABS: Add Manual Diff / Slide Review NO; Basophils Absolute Auto 0 /uL (0-100); Basophils Percent Auto 0.6 % (0-2); Eosinophils Absolute Auto 100 /uL (0-450); Eosinophils Percent Auto 0.8 % (2-4); Hematocrit 35.8 % (41-53); Hemoglobin 12.5 g/dL (13.5-17.5); Lymphocytes Absolute Auto 2500 /uL (1100-4500); Lymphocytes Percent Auto 37.3 % (25-40); Mean Corpuscular HGB Conc 34.9 % (30-36); Mean Corpuscular Hemoglobin 33.1 PG (26-34); Mean Corpuscular Volume 94.9 fL (80-100); Monocytes Absolute Auto 500 /uL (0-900); Monocytes Percent Auto 7.1 % (3-14); Neutrophils Absolute Auto 3600 /uL (1500-7000); Neutrophils Percent Auto 54.2 % (50-75); Platelet Count 197 X10^3/uL (150-400); Red Blood Cell Count 3.77 X10^6/uL (4.5-5.9); Red Cell Distribution Width 12.1 % (11.6-14.8); White Blood Cell Count 6.6 X10^3/uL (4.5-11.0)
[2019-06-18] MEDS: SODIUM CHLORIDE 0.9% 1,000 ML 150 ML IV (03:21)
[2019-06-18] MEDS: ONDANSETRON 4 MG/2 ML INJ IV (03:22)
[2019-06-18] MEDS: KETOROLAC 60 MG/2 ML VIAL 15 MG IV (03:22)
[2019-06-18 03:26] LABS: Prothrombin Time 11.7 SECONDS (10.1-12.7)
[2019-06-18 03:30] LABS: Alanine Aminotransferase 12 IU/L (21-72); Albumin 4.7 g/dL (3.5-5.0); Albumin Globulin Ratio 1.6 (1.0-2.8); Alkaline Phosphatase 43 U/L (38-126); Aspartate Aminotransferase 24 IU/L (17-59); Bilirubin Total 0.4 mg/dL (0.2-1.3); Blood Urea Nitrogen 9 mg/dL (9-20); Calcium 9.5 mg/dL (8.4-10.2); Carbon Dioxide 28 mmol/L (22-32); Chloride 102 mmol/L (98-107); Estimated Glomerular Filt Rate > 60.0 mL/min (>60); Globulin 2.9 g/dL (1.7-4.1); Glucose 96 mg/dL (70-100); HEMOLYSIS < 15 (0-50); Lipase 121 U/L (23-300); Potassium 3.5 mmol/L (3.4-5.1); Sodium 140 mmol/L (137-145); Total Protein 7.6 g/dL (6.3-8.2)
--- NOTE | 2019-06-18 03:30 | PC.NURSE ---
Pt states it is not likley he is . He is trans and has not had sex with a male in ten years. He does consent to test if needed for imaging.
--- NOTE | 2019-06-18 03:57 | PC.NURSE ---
Pt reported pain in the iv. No findings at iv site, IV removed, provider notified.
--- NOTE | 2019-06-18 03:59 | PC.NURSE ---
Pain and tingling down arm from initial start of IV. IV DCd
[2019-06-18 04:48] VITALS: BP 108/71; PULSE 51; RESP 14; TEMP 36.8; O2SAT 100
== END 2019-06-18 04:49 | disposition home or self-care (01) ==
PROVIDERS: Emergency Provider Emergency Medicine; Family Provider Nurse Practitioner Family; PCP Nurse Practitioner Family
DX: R10.11 Right upper quadrant pain (principal)
CPT/HCPCS: 36591; 76705; 80053; 81003; 83690; 85025; 85610; 96361; 96374; 96375; 99283; 99284; J1885; J2405

== ENCOUNTER 2019-07-13 21:10 | Emergency (ER) | payer OTHER, SELFPAY ==
[2019-07-13 21:15] VITALS: BP 105/67; PULSE 86; RESP 16; TEMP 37; O2SAT 100
--- NOTE | 2019-07-13 21:28 | DI.RAD.S_ITS ---
PROCEDURE: XR CHEST 1V INDICATIONS: Chest pain TECHNIQUE: One view of the chest was acquired. COMPARISON: [facility], CT, PE STUDY (CTA CHEST), 09/19/2016, 8:46. [facility], CR, XR CHEST 2V, 03/20/2019, 22:11. FINDINGS: Surgical changes and devices: None. Lungs and pleura: Lungs are clear. No pleural effusions or pneumothorax. Mediastinum: Mediastinal contours appear normal. Heart size is normal. Bones and chest wall: No suspicious bony lesions. Overlying soft tissues appear unremarkable. IMPRESSION: Portable chest within normal limits. Dictated by: Jose E Peña M.D. on 07/13/2019 at 22:14 Approved by: Jose E Peña M.D. on 07/13/2019 at 22:15
--- NOTE | 2019-07-13 22:31 | ED_ITS ---
HPI - Chest Pain General Chief Complaint: Chest Pain Stated Complaint: CHEST PAIN LEFT SHOULDER PAIN SOB Time Seen by Provider: 07/13/19 21:28 Source: patient Mode of arrival: Ambulatory Limitations: no limitations History of Present Illness HPI narrative: Patient is a 29-year-old transgender male here for evaluation of initially described as chest pain however upon further evaluation his more left upper quadrant abdominal pain radiating to his left shoulder. Reports that his symptoms have been going on for the past 2 days. He states that he has recently been started on Nexium which did help prior abdominal symptoms however the symptoms are new/different/worse. States it is worse with palpation. His caus ing to have some nausea. No urinary symptoms. He does still have female reproductive organs to include ovaries. He does state that he is on hormonal therapy. Still has menstrual cycles and feels like potentially could be starting his menses. No fevers. Has not tried anything for symptoms prior to arrival. Related Data Home Medications Medication Instructions Recorded Confirmed [TESTOSTERONE] #0 06/03/16 Previous Rx's Medication Instructions Recorded hyoscyamine sulfate [Levsin/SL] 0.125 mg SUBLINGUAL Q6HP PRN #14 01/24/18 tab ondansetron [Zofran ODT] 4 mg SUBLINGUAL Q6HP PRN #10 odt 01/24/18 pantoprazole [Protonix] 40 mg PO QDAY #14 tab 01/24/18 ondansetron [Zofran ODT] 4 mg SUBLINGUAL Q6HP PRN #10 odt 02/06/18 oxycodone-acetaminophen [Percocet] 1 tab PO Q4HP PRN #10 tab 02/06/18 ketorolac 10 mg PO Q6H PRN #20 tab 06/18/19 metoclopramide HCl [Reglan] 10 mg PO Q6H PRN #14 tab 07/14/19 Allergies Allergy/AdvReac Type Severity Reaction Status Date / Time hydromorphone [From DILAUDID] Allergy Unknown Verified 05/12/18 10:13 Review of Systems Constitutional Constitutional: Denies fever(s) ENT Ears, Nose, Mouth, and Throat: Denies dysphagia Cardiovascular Cardiovascular: Reports chest pain, Denies palpitations and Denies dyspnea Respiratory Respiratory: Denies dyspnea Gastrointestinal Gastrointestinal: Reports abdominal pain, Denies change in stool character, Denies dysphagia and Reports nausea Genitourinary Genitourinary: Denies dysuria Musculoskeletal Musculoskeletal: Denies myalgias and Denies arthralgias Integumentary/Breasts Skin/Breast: Denies lesions and Denies rash Neurologic Neurologic: Denies confusion and Denies paresthesias Psychiatric Psychiatric: Denies confusion Endocrine Endocrine: Denies palpitations Hematologic/Lymphatic Hematologic/Lymphatic: Denies easy bleeding and Denies easy bruising PFS Medical History Acid reflux (Inactive) Social History Smoking Status: Never smoker Social History Smoking Status: Never smoker Exam Initial Vital Signs Initial Vital Signs: Vital Signs Temperature 98.6 F 07/13/19 21:15 Pulse Rate 86 07/13/19 21:15 Respiratory Rate 16 07/13/19 21:15 Blood Pressure 105/67 07/13/19 21:15 Pulse Oximetry 100 07/13/19 21:15 Const General: cooperative, comfortable, well developed and well groomed Orientation: alert and awake HENMT Head: normal to inspection and normocephalic Resp Effort & Inspection: normal respiratory effort Auscultation: clear to auscultation bilaterally Cardio Rate: regular rate Rhythm: regular rhythm GI Inspection: non-distended Palpation: soft, No firm and tender (Epigastric left upper quadrant) Back/Spine/Pelvis Back: No CVA tenderness Skin Lesions: no lesions Rashes: no rashes Neuro General: alert and awake Cognition: normal cognition Speech: speech normal Extrem General: normal to inspection and capillary refill normal Psych Appearance: grossly normal and well kempt Course Orders Ordered: ED Orders 07/13/19 21:18 EKG-12 Lead Stat 07/13/19 21:28 XR chest 1V Stat 07/13/19 23:00 Complete Blood Count AUTO DIFF Stat Comprehensive Metabolic Panel Stat Lipase Stat Troponin I Stat Discontinued Medications Pantoprazole Sodium (Protonix) 40 mg IV NOW ONE Stop: 07/13/19 22:43 Last Admin: 07/13/19 23:04 Dose: 40 mg Documented by: NIRAJ Tramadol HCl (Ultram 50mg Prepack) 1 bottle MISC SEEINSTR ONE Stop: 07/14/19 00:08 Last Admin: 07/14/19 00:48 Dose: 1 bottle Documented by: NIRAJ Vital Signs Vital signs: Vital Signs - 8 hr 07/13/19 23:00 07/14/19 00:58 Pulse Rate 52 L 59 L Respiratory Rate 14 19 Blood Pressure 121/81 Blood Pressure [Left Arm] 108/69 Pulse Oximetry 99 99 MDM - Chest Pain Lab Data Attestation: I reviewed the patient's lab results. Result diagrams: 07/13/19 23:00 07/13/19 23:00 Labs: Lab Results 07/13/19 07/13/19 07/13/19 Range/Units 23:00 23:00 23:00 WBC 10.3 (4.5-11.0) X10^3/uL RBC 3.60 L (4.5-5.9) X10^6/uL Hgb 11.9 L (13.5-17.5) g/dL Hct 34.2 L (41-53) % MCV 95.0 (80-100) fL MCH 33.0 (26-34) PG MCHC 34.7 (30-36) % RDW 12.4 (11.6-14.8) % Plt Count 249 (150-400) X10^3/uL Neut % (Auto) 79.6 H (50-75) % Lymph % (Auto) 12.4 L (25-40) % [place] % (Auto) 7.2 (3-14) % Eos % (Auto) 0.4 L (2-4) % Baso % (Auto) 0.4 (0-2) % Neut # (Auto) 8200 H (0875-8753) /uL Lymph # (Auto) 1300 (2853-5079) /uL [place] # (Auto) 700 (0-900) /uL Eos # (Auto) 0 (0-450) /uL Baso # (Auto) 0 (0-100) /uL Sodium 139 (137-145) mmol/L Potassium 3.7 (3.4-5.1) mmol/L Chloride 105 (98-107) mmol/L Carbon Dioxide 26 (22-32) mmol/L BUN 8 L (9-20) mg/dL Creatinine 0.50 L (0.66-1.25) mg/dL Estimated GFR > 60.0 (>60) mL/min BUN/Creatinine Ratio 16.0 (6-22) Glucose 84 (70-100) mg/dL Calcium 9.0 (8.4-10.2) mg/dL Total Bilirubin 0.8 (0.2-1.3) mg/dL AST 26 (17-59) IU/L ALT 13 L (21-72) IU/L Alkaline Phosphatase 47 (38-126) U/L Troponin I < 0.012 (0.01-0.034) ng/mL Total Protein 7.2 (6.3-8.2) g/dL Albumin 4.2 (3.5-5.0) g/dL Globulin 3.0 (1.7-4.1) g/dL Albumin/Globulin Ratio 1.4 (1.0-2.8) Lipase 63 (23-300) U/L Imaging Data Chest x-ray: Radiologist's impression: [address] [address] XRay Report Signed Patient: Mir Mirza LMR#: [id number] : 1990Acct:[id number] Age/Sex: 29 / MDate of Service: 07/13/19 Loc: ED Accession Number: [id number] Procedure: XR chest 1V Ordering Provider: Mike Salgado D.O. PROCEDURE: XR CHEST 1V INDICATIONS: Chest pain TECHNIQUE: One view of the chest was acquired. COMPARISON: [facility], CT, PE STUDY (CTA CHEST), 09/19/2016, 8:46. [facility], CR, XR CHEST 2V, 03/20/2019, 22:11. FINDINGS: Surgical changes and devices: None. Lungs and pleura: Lungs are clear. No pleural effusions or pneumothorax. Mediastinum: Mediastinal contours appear normal. Heart size is normal. Bones and chest wall: No suspicious bony lesions. Overlying soft tissues appear unremarkable. IMPRESSION: Portable chest within normal limits. Dictated by: Jose E Peña M.D. on 07/13/2019 at 22:14 Approved by: Jose E Peña M.D. on 07/13/2019 at 22:15 ECG Data Attestation: I personally reviewed and interpreted this ECG as follows: Prior ECG tracings: not available for review Interpretation: Sinus bradycardia Ventricular rate of 55 Normal axis Normal QRS Normal QTC No ST T wave changes MDM Narrative Medical decision making narrative: Patient's labs unremarkable. No signs of pancreatitis. Low suspicion for gallbladder disease. Chest x-ray is unremarkable. EKG is unremarkable. Low suspicion for ACS or pneumonia. I believe his left shoulder pain is referral from his left upper abdominal pain. He recently was diagnosed with reflux disease. Has been on Nexium on a daily basis which initially helped his symptoms now potentially not helping. I do not feel that a CT scan is warranted today however if he returns with new or worsening symptoms that would seriously consider performing a CT scan. No signs of free air into the diaphragm on the chest x-ray which be concerning for a perforated ulcer. Plan lyudmilazes send him home on Reglan. He is going to continue the Nexium. Informed him he needed to talk with his primary provider about an endoscopy. Patient also states there has been concern in the past about potential endometriosis. The symptoms did start around when he should be starting the menstrual cycle. This could very well be the cause of his symptoms as well. He does have an appointment with a carry in worker provider. He was given return precautions and follow-up instructions. He expressed understanding and agreement with plan. Discharge Plan Departure Patient Disposition: Home Clinical Impression: Abdominal pain Qualifiers: Abdominal location: epigastric Qualified Code(s): R10.13 - Epigastric pain Discharge Date/Time: 07/14/19 01:02 Instructions: Acute Abdominal Pain Activity Restrictions/Additional Instructions: Continue to take all of your medications as directed. Take the Reglan as directed as needed like we discussed. Return to the emergency department for any new or worsening symptoms Prescriptions: New metoclopramide HCl [Reglan] 10 mg tablet 10 mg PO Q6H PRN (Reason: abdominal pain) Qty: 14 RF: 0 No Action [TESTOSTERONE] Qty: 0 RF: 0 pantoprazole [Protonix] 40 MG tablet,delayed release (DR/EC) 40 mg PO QDAY Qty: 14 RF: 0 hyoscyamine sulfate [Levsin/SL] 0.125 MG tablet, sublingual 0.125 mg Sublingual Q6HP PRNQty: 14 RF: 0 ondansetron [Zofran ODT] 4 MG tablet,disintegrating 4 mg Sublingual Q6HP PRNQty: 10 RF: 0 oxycodone-acetaminophen [Percocet] 5 MG/325 MG tablet 1 tab PO Q4HP PRNQty: 10 RF: 0 ondansetron [Zofran ODT] 4 MG tablet,disintegrating 4 mg Sublingual Q6HP PRNQty: 10 RF: 0 ketorolac 10 mg tablet 10 mg PO Q6H PRN (Reason: pain) Qty: 20 RF: 0 Referrals: Alexandra Smart ARNP [Primary Care Provider] -
[2019-07-13 23:00] VITALS: BP 108/69; PULSE 52; RESP 14; O2SAT 99
[2019-07-13] MEDS: PANTOPRAZOLE 40 MG VIAL IV (23:04)
[2019-07-13 23:07] LABS: Add Manual Diff / Slide Review NO; Basophils Absolute Auto 0 /uL (0-100); Basophils Percent Auto 0.4 % (0-2); Eosinophils Absolute Auto 0 /uL (0-450); Eosinophils Percent Auto 0.4 % (2-4); Hematocrit 34.2 % (41-53); Hemoglobin 11.9 g/dL (13.5-17.5); Lymphocytes Absolute Auto 1300 /uL (1100-4500); Lymphocytes Percent Auto 12.4 % (25-40); Mean Corpuscular HGB Conc 34.7 % (30-36); Monocytes Absolute Auto 700 /uL (0-900); Monocytes Percent Auto 7.2 % (3-14); Neutrophils Absolute Auto 8200 /uL (1500-7000); Neutrophils Percent Auto 79.6 % (50-75); Platelet Count 249 X10^3/uL (150-400); Red Cell Distribution Width 12.4 % (11.6-14.8); White Blood Cell Count 10.3 X10^3/uL (4.5-11.0)
[2019-07-13 23:24] LABS: Alanine Aminotransferase 13 IU/L (21-72); Albumin 4.2 g/dL (3.5-5.0); Albumin Globulin Ratio 1.4 (1.0-2.8); Alkaline Phosphatase 47 U/L (38-126); Aspartate Aminotransferase 26 IU/L (17-59); Bilirubin Total 0.8 mg/dL (0.2-1.3); Blood Urea Nitrogen 8 mg/dL (9-20); Carbon Dioxide 26 mmol/L (22-32); Chloride 105 mmol/L (98-107); Estimated Glomerular Filt Rate > 60.0 mL/min (>60); Glucose 84 mg/dL (70-100); HEMOLYSIS 28 (0-50); Lipase 63 U/L (23-300); Potassium 3.7 mmol/L (3.4-5.1); Sodium 139 mmol/L (137-145); Total Protein 7.2 g/dL (6.3-8.2)
[2019-07-13 23:36] LABS: Troponin I < 0.012 ng/mL (0.01-0.034)
[2019-07-14] MEDS: TRAMADOL 50 MG PREPACK 1 BOTTLE MISC (00:48)
[2019-07-14 00:58] VITALS: BP 121/81; PULSE 59; RESP 19; O2SAT 99
== END 2019-07-14 01:02 | disposition home or self-care (01) ==
PROVIDERS: Emergency Provider Emergency Medicine; PCP Nurse Practitioner Family
DX: R10.13 Epigastric pain (principal); R07.9 Chest pain, unspecified
CPT/HCPCS: 36591; 71045; 80053; 83690; 84484; 85025; 93005; 96374; 99282; 99285; C9113

== ENCOUNTER 2019-12-30 18:09 | Emergency (ER) | payer OTHER, SELFPAY ==
[2019-12-30 18:15] VITALS: BP 98/56; PULSE 88; RESP 20; TEMP 37; O2SAT 99
--- NOTE | 2019-12-30 18:16 | ED_ITS ---
HPI - Abdominal Pain General Chief Complaint: Abdominal Pain Stated Complaint: abdominal pain, vomiting, migraine Time Seen by Provider: 12/30/19 18:10 Source: patient Mode of arrival: Ambulatory Limitations: no limitations History of Present Illness HPI narrative: 29-year-old female to male transgender with history of chronic abdominal pain thought to be related to endometriosis presents with typical migraine complaints over the course of the day. He states that it has been gradual in onset and is largely associated with pain in his occiput. Symptoms are worse with bright lights and loud noise and improve in a dark, quiet room. No fever or chills and no recent injury. No neurologic symptoms such as blurred vision, trouble with speech nor numbness, tingling or weakness of extremities. Discussions regarding abdominal pain are rather brief but symptoms have been persistent for many months if not years and he has had multiple evaluations at various facilities including this [address], ultrasounds among other. Additionally he has an established relationship with Gastroenterology. No recent travel or exposure to ill persons. No neck pain. MD complaint: other Related Data Home Medications Medication Instructions Recorded Confirmed [TESTOSTERONE] #0 06/03/16 Previous Rx's Medication Instructions Recorded hyoscyamine sulfate [Levsin/SL] 0.125 mg SUBLINGUAL Q6HP PRN #14 01/24/18 tab ondansetron [Zofran ODT] 4 mg SUBLINGUAL Q6HP PRN #10 odt 01/24/18 pantoprazole [Protonix] 40 mg PO QDAY #14 tab 01/24/18 ondansetron [Zofran ODT] 4 mg SUBLINGUAL Q6HP PRN #10 odt 02/06/18 oxycodone-acetaminophen [Percocet] 1 tab PO Q4HP PRN #10 tab 02/06/18 ketorolac 10 mg PO Q6H PRN #20 tab 06/18/19 metoclopramide HCl [Reglan] 10 mg PO Q6H PRN #14 tab 07/14/19 Allergies Allergy/AdvReac Type Severity Reaction Status Date / Time hydromorphone [From DILAUDID] Allergy Unknown Verified 05/12/18 10:13 Review of Systems Constitutional Constitutional: Denies chills, Denies fatigue, Denies fever(s), Denies frequent falls, Reports headache(s), Denies lethargy and Denies weakness Eyes Eyes: Denies change in vision, Denies eye discharge, Denies irritation and Denies loss of vision ENT Ears, Nose, Mouth, and Throat: Denies change in voice, Denies dizziness, Reports headache(s), Denies neck pain, Denies sore throat and Denies throat swelling Cardiovascular Cardiovascular: Denies chest pain, Denies irregular heart rhythm, Denies lightheadedness, Denies palpitations, Denies dyspnea, Denies dyspnea on exertion and Denies orthopnea Respiratory Respiratory: Denies cough, Denies dyspnea, Denies dyspnea on exertion and Denies wheezing Gastrointestinal Gastrointestinal: Reports abdominal pain, Denies change in bowel habits, Denies diarrhea, Reports nausea and Reports vomiting (x1) Genitourinary Genitourinary: Denies hematuria, Denies flank pain, Denies urinary incontinence and Denies urinary urgency Musculoskeletal Musculoskeletal: Denies back pain, Denies muscle weakness, Denies neck pain, Denies numbness and Denies tingling Integumentary/Breasts Skin/Breast: Denies pruritus, Denies erythema, Denies rash and Denies wounds Neurologic Neurologic: Denies behavioral changes, Denies confusion, Denies dizziness, Denies frequent falls, Reports headache(s), Denies loss of vision, Denies numbness, Denies tingling and Denies weakness Psychiatric Psychiatric: Denies anxiety, Denies behavioral changes, Denies confusion, Denies depression, Denies homicidal ideation and Denies suicidal ideation Endocrine Endocrine: Denies fatigue, Denies flushing and Denies palpitations Hematologic/Lymphatic Hematologic/Lymphatic: Denies easy bruising Allergic/Immunologic Allergic/Immunologic: Denies urticaria, Denies throat swelling and Denies wheezing Patient History Medical History Acid reflux (Inactive) Social History Smoking Status: Never smoker Smoking Status: Never smoker alcohol intake frequency: 0-2 drinks per day Substance Use Type: marijuana Exam Narrative Exam Narrative: GENERAL: [29] year old patient appears stated age. Well- nourished, well-developed patient, in mild distress. HEAD: Atraumatic. Normocephalic. EYES: Pupils equal round and reactive. Extraocular motions intact. No scleral icterus. No injection or drainage. ENT: Nose without bleeding, purulent drainage. Throat without erythema, tonsillar hypertrophy or exudate. Airway patent. NECK: Trachea midline. Non tender CARDIOVASCULAR: Regular rate and rhythm without murmurs, gallops, or rubs. RESPIRATORY: Clear to auscultation. Breath sounds equal bilaterally. No wheezes, rales, or rhonchi. GASTROINTESTINAL: Abdomen soft, non-tender, nondistended. EXTREMITIES: No edema or joint tenderness. BACK: Nontender without deformity or crepitance. No flank tenderness. NEURO: AOx3. SKIN: No rash or erythema of visible areas NIH Stroke Scale 1a. LOC: Patient is alert and keenly responsive (0) 1b. LOC Questions: Patient answers both LOC questions accurately (0) 1c. LOC Commands: Patient performs both tasks correctly (0) 2. Best Gaze: Normal (0) 3. Visual: No visual loss (0) 4. Facial palsy: Normal symmetrical movements (0) 5. Motor arm: No drift (0) 6. Motor leg: No drift (0) 7. Limb ataxia: Absent (0) 8. Sensory: Normal (0) 9. Best language: No aphasia; normal (0) 10. Dysarthria: Normal (0) 11. Extinction and inattention: No abnormality (0) NIHSS: 0 Initial Vital Signs Initial Vital Signs: Vital Signs Temperature 98.6 F 12/30/19 18:15 Pulse Rate 88 12/30/19 18:15 Respiratory Rate 20 12/30/19 18:15 Blood Pressure 98/56 L 12/30/19 18:15 Pulse Oximetry 99 12/30/19 18:15 Course Course Course Narrative: Patient felt better after administered medications through the IV and then demanded the IV be removed before fluids administered. He said his headache was better and he knew we would not be able to help with his abdominal pain. He left before I was able to go have a word him. Orders Ordered: Discontinued Medications Dexamethasone (Decadron) 10 mg IV NOW ONE Stop: 12/30/19 18:35 Last Admin: 12/30/19 18:44 Dose: 10 mg Documented by: GURDEEP Diphenhydramine HCl (Benadryl) 25 mg IV NOW ONE Stop: 12/30/19 18:35 Last Admin: 12/30/19 18:43 Dose: 25 mg Documented by: GURDEEP Sodium Chloride (Normal Saline 0.9%) 1,000 mls @ 1,000 mls/hr IV BOLUS ONE Stop: 12/30/19 19:33 Last Infusion: 12/30/19 19:00 Dose: 0 mls/hr Documented by: Admin: 12/30/19 18:42 Dose: 1,000 mls/hr Documented by: GURDEEP Ketorolac Tromethamine (Toradol) 15 mg IV NOW ONE Stop: 12/30/19 18:35 Last Admin: 12/30/19 18:41 Dose: 15 mg Documented by: GURDEEP Metoclopramide HCl (Reglan) 10 mg IV NOW ONE Stop: 12/30/19 18:35 Last Admin: 12/30/19 18:43 Dose: 10 mg Documented by: GURDEEP Vital Signs Vital signs: Vital Signs - 8 hr 12/30/19 18:15 Temperature 98.6 F Pulse Rate 88 Respiratory Rate 20 Blood Pressure 98/56 L Pulse Oximetry 99 MDM - Abdominal Pain MDM Narrative Medical decision making narrative: Multiple etiologies for patient's symptoms considered including: [Migraine headache versus subarachnoid hemorrhage versus meningitis versus other] Patient's symptoms improved or duration of stay with above-stated therapies. Findings and discharge diagnosis discussed with patient/family followed by verbalization of understanding Return precautions discussed with patient/family whom verbalize understanding. Discharge Plan Departure Patient Disposition: Left Against Medical Advice Clinical Impression: Left against medical advice Discharge Date/Time: 12/30/19 19:20 Prescriptions: No Action [TESTOSTERONE] Qty: 0 RF: 0 pantoprazole [Protonix] 40 MG tablet,delayed release (DR/EC) 40 mg PO QDAY Qty: 14 RF: 0 hyoscyamine sulfate [Levsin/SL] 0.125 MG tablet, sublingual 0.125 mg Sublingual Q6HP PRNQty: 14 RF: 0 ondansetron [Zofran ODT] 4 MG tablet,disintegrating 4 mg Sublingual Q6HP PRNQty: 10 RF: 0 oxycodone-acetaminophen [Percocet] 5 MG/325 MG tablet 1 tab PO Q4HP PRNQty: 10 RF: 0 ondansetron [Zofran ODT] 4 MG tablet,disintegrating 4 mg Sublingual Q6HP PRNQty: 10 RF: 0 ketorolac 10 mg tablet 10 mg PO Q6H PRN (Reason: pain) Qty: 20 RF: 0 metoclopramide HCl [Reglan] 10 mg tablet 10 mg PO Q6H PRN (Reason: abdominal pain) Qty: 14 RF: 0 Stand Alone Forms: Against Medical Advice
[2019-12-30] MEDS: KETOROLAC 60 MG/2 ML VIAL 15 MG IV (18:41)
[2019-12-30] MEDS: SODIUM CHLORIDE 0.9% 1,000 ML 1000 ML IV (18:42)
[2019-12-30] MEDS: METOCLOPRAMIDE 10 MG/2 ML INJ IV (18:43)
[2019-12-30] MEDS: diphenhydrAMINE 50 MG/ML VIAL 25 MG IV (18:43)
[2019-12-30] MEDS: DEXAMETHASONE 10 MG/ML VIAL IV (18:44)
--- NOTE | 2019-12-30 19:08 | PC.NURSE ---
answered call light. Pt states he needs IV out of his arm and wants out. States his headache feels a little better after the medications but he feels we wont be able to do anything for him and wants to be admitted and have surgery or get pain medications. we discussed criteria for admission and surgery. Pt verbalizes understanding and states he just can't be here any more. I Removed IV per request and let Dr. Mcguire know. I had more discussions with pt and he does not want to wait for anything but does want to leave. Pt ambulatory from ED in no acute distress.
== END 2019-12-30 19:20 | disposition left against medical advice (07) ==
PROVIDERS: Emergency Provider Emergency Medicine; PCP Nurse Practitioner Family
DX: G43.909 Migraine, unspecified, not intractable, without status migrainosus (principal); R10.9 Unspecified abdominal pain
CPT/HCPCS: 96374; 96375; 99283; 99284; J1100; J1200; J1885; J2765

== ENCOUNTER 2020-05-11 18:03 | Emergency (ER) | payer OTHER, MEDICAID, SELFPAY ==
[2020-05-11] VITALS (8 sets, daily range): BP systolic 91–116; BP diastolic 51–83; PULSE 52–105; RESP 12–17; TEMP 37–37.3; O2SAT 96–99; BMI 20.4
--- NOTE | 2020-05-11 18:50 | ED.GENADULT ---
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 Of note he had abdominal surgery at [facility] a month ago to remove left ovary that was adherent to the pelvic sidewall and causing severe abdominal pain. He denies fevers or cough but does report that he frequently has chills this is not changed. Additional medical problems include chronic abdominal pain that seems to be improving with the recent oophorectomy. Concern for inflammatory bowel disease or other autoimmune dysfunction that has yet to fully diagnosed, reflux GI related chest pain. Review of systems is notable for migratory arthralgias, paresthesias of the feet that have been worsening for the last 3 days, intermittent paresthesias of the fingers over a number of months, orthostatics symptoms when standing and yesterday noted lip in finger numbness that lasted approximately 5 seconds. He notes that he has had difficulty maintaining his weight with all of the issues above. His primary care physician is in [place]. Current medications include omeprazole and injectable testosterone Related Data Home Medications Medication Instructions Recorded Confirmed [TESTOSTERONE] #0 06/03/16 Previous Rx's Medication Instructions Recorded hyoscyamine sulfate [Levsin/SL] 0.125 mg SUBLINGUAL Q6HP PRN #14 01/24/18 tab ondansetron [Zofran ODT] 4 mg SUBLINGUAL Q6HP PRN #10 odt 01/24/18 pantoprazole [Protonix] 40 mg PO QDAY #14 tab 01/24/18 ondansetron [Zofran ODT] 4 mg SUBLINGUAL Q6HP PRN #10 odt 02/06/18 oxycodone-acetaminophen [Percocet] 1 tab PO Q4HP PRN #10 tab 02/06/18 ketorolac 10 mg PO Q6H PRN #20 tab 06/18/19 metoclopramide HCl [Reglan] 10 mg PO Q6H PRN #14 tab 07/14/19 Allergies Allergy/AdvReac Type Severity Reaction Status Date / Time hydromorphone [From DILAUDID] Allergy Unknown Back Pain Verified 05/11/20 18:18 Review of Systems Review of Systems Narrative: Pertinent positive and negative findings as per HPI Recently completed a course of antibiotics (unknown type) for of vaginal infection that was diagnosed with a Pap smear that was done during the recent surgery Notes a rash that is developed over his face and cheeks that seems to be worse when his abdominal issues are flaring that consists of mild violaceous plaques over the cheeks bilaterally without raised edges or vesicles or nodules Remainder of review of systems is otherwise unremarkable for ENT: No sore throat, neck pain, ear pain CV: palpitations, dyspnea on exertion Respiratory: Cough, wheeze, dyspnea : Dysuria, hematuria, flank pain Patient History Medical History Acid reflux (Inactive) 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 Able to give a complete and coherent history. Well-nourished well-developed HEENT: Moist mucous membranes, normal sclera with reactive pupils, Neck: No JVD, supple Respiratory: Lungs are clear to auscultation, no wheezing no rales no rhonchi. Full and symmetrical air movement Cardiac: Regular rate and rhythm no murmurs no bruits, no reproducible chest pain on palpation Abdomen: Soft , tender in the left lower quadrant with palpation(recent surgical site), good bowel tones, no flank pain Skin: Warm and dry, very light violaceous plaques approximately 1 cm in diameter with edges that fade to normal skin tone, no puritis and nonblanching over both cheeks Neurologic: Grossly neurologically intact with no obvious asymmetries or abnormalities Extremities: No trauma, well perfused Psych: Cooperative, appropriate insight and affect Initial Vital Signs Initial Vital Signs: Vital Signs Temperature 98.6 F 05/11/20 18:14 Pulse Rate 105 H 05/11/20 18:14 Respiratory Rate 12 05/11/20 18:14 Blood Pressure 111/63 05/11/20 18:14 Pulse Oximetry 99 05/11/20 18:14 Course Orders Ordered: ED Orders 05/11/20 18:22 EKG-12 Lead Stat 05/11/20 19:49 Complete Blood Count AUTO DIFF Stat Comprehensive Metabolic Panel Stat Lipase Stat Magnesium Stat Troponin I Stat 05/11/20 21:27 XR chest 1V Stat Discontinued Medications Sodium Chloride (Normal Saline 0.9%) 1,000 mls @ 1,000 mls/hr IV BOLUS ONE Stop: 05/11/20 19:49 Last Infusion: 05/11/20 20:44 Dose: 0 mls/hr Documented by: Infusion: 05/11/20 19:40 Dose: 1,000 mls/hr Documented by: Infusion: 05/11/20 19:35 Dose: 0 mls/hr Documented by: Admin: 05/11/20 19:35 Dose: 1,000 mls/hr Documented by: HUY Ketorolac Tromethamine (Toradol) 15 mg IV NOW ONE Stop: 05/11/20 21:27 Last Admin: 05/11/20 21:33 Dose: 15 mg Documented by: HUY Ondansetron HCl (Zofran) 4 mg IV NOW ONE Stop: 05/11/20 18:51 Last Admin: 05/11/20 19:35 Dose: 4 mg Documented by: HUY Vital Signs Vital signs: Vital Signs - 8 hr 05/11/20 18:14 05/11/20 20:52 05/11/20 21:00 Temperature 98.6 F Pulse Rate 105 H 65 62 Respiratory Rate 12 16 15 Blood Pressure 111/63 91/51 L Pulse Oximetry 99 96 96 05/11/20 21:30 05/11/20 22:00 05/11/20 22:30 Temperature Pulse Rate 57 L 55 L 54 L Respiratory Rate 17 13 14 Blood Pressure 95/52 L 99/53 L 92/51 L Pulse Oximetry 97 97 99 Medical Decision Making Medical Records Medical records reviewed: Yes I reviewed the patient's medical records. Lab Data Lab results reviewed: Yes I reviewed the patient's lab results. Result diagrams: 05/11/20 19:49 05/11/20 19:49 Labs: Lab Results 05/11/20 05/11/20 Range/Units 19:49 19:49 WBC 6.5 (4.5-11.0) X10^3/uL RBC 3.53 L (4.5-5.9) X10^6/uL Hgb 11.7 L (13.5-17.5) g/dL Hct 34.0 L (41-53) % MCV 96.2 (80-100) fL MCH 33.2 (26-34) PG MCHC 34.5 (30-36) % RDW 12.6 (11.6-14.8) % Plt Count 181 (150-400) X10^3/uL Neut % (Auto) 60.4 (50-75) % Lymph % (Auto) 29.4 (25-40) % Kimball % (Auto) 8.5 (3-14) % Eos % (Auto) 1.1 L (2-4) % Baso % (Auto) 0.6 (0-2) % Neut # (Auto) 3900 (3618-1926) /uL Lymph # (Auto) 1900 (1305-4741) /uL Kimball # (Auto) 600 (0-900) /uL Eos # (Auto) 100 (0-450) /uL Baso # (Auto) 0 (0-100) /uL Sodium 139 (137-145) mmol/L Potassium 3.8 (3.4-5.1) mmol/L Chloride 107 (98-107) mmol/L Carbon Dioxide 27 (22-32) mmol/L BUN 9 (9-20) mg/dL Creatinine 0.62 L (0.66-1.25) mg/dL Estimated GFR > 60.0 (>60) mL/min BUN/Creatinine Ratio 14.5 (6-22) Glucose 81 (70-100) mg/dL Calcium 9.3 (8.4-10.2) mg/dL Magnesium 1.9 (1.6-2.3) mg/dL Total Bilirubin 0.3 (0.2-1.3) mg/dL AST 31 (17-59) IU/L ALT 21 (<50) IU/L Alkaline Phosphatase 40 (38-126) U/L Troponin I < 0.012 (0.01-0.034) ng/mL Total Protein 6.6 (6.3-8.2) g/dL Albumin 4.0 (3.5-5.0) g/dL Globulin 2.6 (1.7-4.1) g/dL Albumin/Globulin Ratio 1.5 (1.0-2.8) Lipase 50 (23-300) U/L Imaging Data Chest x-ray: Radiologist's Impression: IMPRESSION: Unremarkable portable chest study. Dictated by: Jose E Peña M.D. on 05/11/2020 at 21:07 ECG Data Attestation: I personally reviewed and interpreted this ECG as follows: Interpretation: Sinus rhythm at a rate of 93 Normal axis, normal intervals No acute ischemic changes MDM Narrative Medical decision making narrative: Chest pain is better but remainder of complaints are relatively unchanged. Reviewed all normal lab work and workup. Safe for home discharge. Strongly recommended follow-up with a station air traffic control specialist given the multiple myalgias and other nonspecific and migratory complaints. Discharge Plan Departure Patient Disposition: Home Clinical Impression: Chest pain, non-cardiac Arthralgia Qualifiers: Joint pain location: unspecified Qualified Code(s): M25.50 - Pain in unspecified joint Instructions: DI for Atypical Chest Pain Activity Restrictions/Additional Instructions: Thank you for coming in today I did not find a life-threatening explanation for the chest pain that you experience today. Specifically, I found no evidence of sepsis, bacterial infection, collapsed lung, enlarged heart, heart attack or heart attack like syndrome, no evidence of abdominal abscess, bowel obstruction or other diagnosis that might put all of your symptoms together. Given your multiple symptoms my recommendation would be to ask your primary care physician to help schedule consultation with a station air traffic control specialist. I have included copies of all of the blood work done today as well as the x-ray results for you to share with your primary care physicians at the [facility]. If things change, there is new symptoms that you find concerning please feel free to return to the emergency department for further evaluation. We did do a Covid screen today, please self corn teen and make sure your wearing a mask until you have results back. Results should be available by tomorrow. I hope you feel better Prescriptions: No Action [TESTOSTERONE] Qty: 0 RF: 0 pantoprazole [Protonix] 40 MG tablet,delayed release (DR/EC) 40 mg PO QDAY Qty: 14 RF: 0 hyoscyamine sulfate [Levsin/SL] 0.125 MG tablet, sublingual 0.125 mg Sublingual Q6HP PRNQty: 14 RF: 0 ondansetron [Zofran ODT] 4 MG tablet,disintegrating 4 mg Sublingual Q6HP PRNQty: 10 RF: 0 oxycodone-acetaminophen [Percocet] 5 MG/325 MG tablet 1 tab PO Q4HP PRNQty: 10 RF: 0 ondansetron [Zofran ODT] 4 MG tablet,disintegrating 4 mg Sublingual Q6HP PRNQty: 10 RF: 0 ketorolac 10 mg tablet 10 mg PO Q6H PRN (Reason: pain) Qty: 20 RF: 0 metoclopramide HCl [Reglan] 10 mg tablet 10 mg PO Q6H PRN (Reason: abdominal pain) Qty: 14 RF: 0 Referrals: Alexandra Smart ARNP [Primary Care Provider] -
[2020-05-11] MEDS: ONDANSETRON 4 MG/2 ML INJ IV (19:35)
[2020-05-11] MEDS: SODIUM CHLORIDE 0.9% 1,000 ML 1000 ML IV (19:35)
[2020-05-11 20:00] LABS: Add Manual Diff / Slide Review NO; Basophils Absolute Auto 0 /uL (0-100); Basophils Percent Auto 0.6 % (0-2); Eosinophils Absolute Auto 100 /uL (0-450); Eosinophils Percent Auto 1.1 % (2-4); Hemoglobin 11.7 g/dL (13.5-17.5); Lymphocytes Absolute Auto 1900 /uL (1100-4500); Lymphocytes Percent Auto 29.4 % (25-40); Mean Corpuscular HGB Conc 34.5 % (30-36); Mean Corpuscular Hemoglobin 33.2 PG (26-34); Mean Corpuscular Volume 96.2 fL (80-100); Monocytes Absolute Auto 600 /uL (0-900); Monocytes Percent Auto 8.5 % (3-14); Neutrophils Absolute Auto 3900 /uL (1500-7000); Neutrophils Percent Auto 60.4 % (50-75); Platelet Count 181 X10^3/uL (150-400); Red Blood Cell Count 3.53 X10^6/uL (4.5-5.9); Red Cell Distribution Width 12.6 % (11.6-14.8); White Blood Cell Count 6.5 X10^3/uL (4.5-11.0)
[2020-05-11 20:11] LABS: Alanine Aminotransferase 21 IU/L (<50); Albumin Globulin Ratio 1.5 (1.0-2.8); Alkaline Phosphatase 40 U/L (38-126); Aspartate Aminotransferase 31 IU/L (17-59); BUN Creatinine Ratio 14.5 (6-22); Bilirubin Total 0.3 mg/dL (0.2-1.3); Blood Urea Nitrogen 9 mg/dL (9-20); Calcium 9.3 mg/dL (8.4-10.2); Carbon Dioxide 27 mmol/L (22-32); Chloride 107 mmol/L (98-107); Estimated Glomerular Filt Rate > 60.0 mL/min (>60); Globulin 2.6 g/dL (1.7-4.1); Glucose 81 mg/dL (70-100); HEMOLYSIS < 15 (0-50); Lipase 50 U/L (23-300); Magnesium 1.9 mg/dL (1.6-2.3); Potassium 3.8 mmol/L (3.4-5.1); Sodium 139 mmol/L (137-145); Total Protein 6.6 g/dL (6.3-8.2)
[2020-05-11 20:22] LABS: Troponin I < 0.012 ng/mL (0.01-0.034)
--- NOTE | 2020-05-11 21:27 | DI.RAD.S_ITS ---
PROCEDURE: XR CHEST 1V INDICATIONS: chest pain TECHNIQUE: One view of the chest was acquired. COMPARISON: [facility], CT, PE STUDY (CTA CHEST), 09/19/2016, 8:46. [facility], CR, XR CHEST 2V, 03/20/2019, 22:11. [facility], CR, XR CHEST 1V, 07/13/2019, 21:59. FINDINGS: Surgical changes and devices: None. Lungs and pleura: Lungs are clear. No pleural effusions or pneumothorax. Mediastinum: Mediastinal contours appear normal. Heart size is normal. Bones and chest wall: No suspicious bony lesions. Overlying soft tissues appear unremarkable. IMPRESSION: Unremarkable portable chest study. Dictated by: Jose E Peña M.D. on 05/11/2020 at 21:07 Approved by: Jose E Peña M.D. on 05/11/2020 at 21:08
[2020-05-11] MEDS: KETOROLAC 60 MG/2 ML VIAL 15 MG IV (21:33)
[2020-05-14 00:07] LABS: COVID19 Sendout Not Detected (Not Detected)
== END 2020-05-11 23:23 | disposition home or self-care (01) ==
PROVIDERS: Emergency Provider Emergency Medicine; PCP Nurse Practitioner Family
DX: R07.89 Other chest pain (principal); M25.50 Pain in unspecified joint; R10.13 Epigastric pain; R20.2 Paresthesia of skin; Z98.890 Other specified postprocedural states; R06.00 Dyspnea, unspecified
CPT/HCPCS: 36415; 71045; 80053; 83690; 83735; 84484; 85025; 87635; 93005; 96361; 96374; 96375; 99284; J1885; J2405